=== PATIENT | male | born 1965 | race Caucasian/White ===

== ENCOUNTER → 2020-08-16 | Outpatient (CLI) | payer OTHER ==
[~2020-08-16] MED LIST: MOTRIN800 MG PO
== END | disposition home or self-care (01) ==
LOC: RAD 11:04
PROVIDERS: ATTEND Nurse Practitioner Family
DX: M25.562 Pain in left knee (principal); M25.552 Pain in left hip

== ENCOUNTER → 2023-02-11 | Outpatient (CLI) | payer OTHER | END | disposition home or self-care (01) | LOC: CT 08:00 → LAB 08:08 | PROVIDERS: ATTEND Internal Medicine Gastroenterology | DX: K76.0 Fatty (change of) liver, not elsewhere classified (principal); K42.9 Umbilical hernia without obstruction or gangrene; C20 Malignant neoplasm of rectum; E11.9 Type 2 diabetes mellitus without complications ==

== ENCOUNTER → 2024-09-28 | Outpatient (CLI) | payer BC ==
[2024-09-28 16:20] LABS: BASO # 0.0 10*3/uL (0.0-0.1); BASO % 0.1 % (0.0-1.0); EOS # 0.2 10*3/uL (0.0-0.4); EOS % 2.9 % (1.0-4.0); MEAN CELL VOLUME 88.1 fl (80.0-94.0); MEAN CORPUSCULAR HGB 29.3 pg (27.0-31.0); MEAN PLATELET VOLUME 7.9 fl (9.6-12.3); MONO # 0.5 10*3/uL (0.1-1.0); MONO % 6.6 % (3.0-9.0); NEUT # 6.2 10*3/uL (2.3-7.9); NEUT % 77.3 % (47.0-73.0); NUCLEATED RED BLOOD CELL 0.0 % (0.0-0.0); NUCLEATED RED BLOOD CELL 0.0 10*3/uL (0.0-0.0); PLATELET COUNT AUTOMATED 230 10*3/uL (130-400); RED CELL DISTRI WIDTH 13.1 % (0-14.5)
[2024-09-28 16:42] LABS: BUN 49 mg/dl (9-23); LDL CHOLESTEROL 72 mg/dL (9-159); SGPT/ALT 13 U/L (5-49)
[2024-09-28 17:28] LABS: VITAMIN D, 25-HYDROXY 45.2 ng/mL (30-100)
== END ==
LOC: LAB 16:02
PROVIDERS: ATTEND Internal Medicine Nephrology
DX: N18.32 Chronic kidney disease, stage 3b (principal)

== ENCOUNTER → 2024-11-03 | Outpatient (CLI) | payer BC, OTHER ==
[2024-11-04 15:07] LABS: A/G RATIO 1.1 (0.7-1.7); BETA GLOBULIN 1.0 g/dL (0.7-1.3); GLOBULIN, TOTAL 3.2 g/dL (2.2-3.9)
[2024-11-05 15:07] LABS: ALBUMIN, URINE 38.3 % (.); ALPHA-1-GLOBULIN, URINE 2.5 % (.); ALPHA-2-GLOBULIN, URINE 15.6 % (.); BETA GLOBULIN, URINE 25.4 % (.); GAMMA GLOBULIN, URINE 18.3 % (.); M-SPIKE, % Not Observed % (Not Observed); PROTEIN,TOTAL - URINE RANDOM 23.0 mg/dL (Not Estab.)
== END | disposition home or self-care (01) ==
LOC: LAB 16:12
PROVIDERS: ATTEND Internal Medicine Nephrology
DX: N18.9 Chronic kidney disease, unspecified (principal); D63.1 Anemia in chronic kidney disease